=== PATIENT | female | born 1965 | race Caucasian/White ===

== ENCOUNTER 2017-03-07 22:25 | Emergency (ER) | payer OTHER ==
[2017-03-07 22:25] VITALS: BP 157/110
[2017-03-07] MEDS ORDERED: NITROGLYCERIN SUBLINGUAL 0.4 MG BOTTLE OF 25. SL PRN (22:45)
[2017-03-07] MEDS ORDERED: ASPIRIN 81 MG TAB.CHEW PO ONE (22:45)
[2017-03-07] MEDS ORDERED: KETOROLAC 30 MG/ML VIAL. ONE (23:08)
[2017-03-07] MEDS ORDERED: KETOROLAC 30 MG/ML VIAL. IV ONE (23:15)
[2017-03-07] MEDS ORDERED: KETOROLAC 60 MG/2 ML VIAL. IM ONE ×2 (23:27→23:45)
--- NOTE | 2017-03-07 23:48 | PHYS DOC ---
General Chief Complaint: CHEST PAIN Stated Complaint: CHEST PAIN Time Seen by MD: 22:37 Source: patient Exam Limitations: no limitations Problems: History of Present Illness Initial Comments Patient is a 51-year-old female who comes emergency Department complaining of chest pain. Patient is accompanied by her spouse, she states that she has not exercised for a very long time and having cabin fever with the very cold outside temperatures earlier today decided to walk on the treadmill. She states that she walked on the treadmill for at least 30 minutes and did work up a sweat but did not feel any chest pain or difficulty breathing throughout the workout. She was symptoms free throughout the afternoon and early evening, about an hour ago when she laid down on her back to go to bed she experienced sudden onset moderate to severe sharp localized left-sided chest/rib pain. The pain was worse with deep breaths, certain positions of her torso, and primarily relieved with upright posture. She denies any dyspnea, nausea, diaphoresis, arm or neck symptoms. She is very anxious that it could be her heart as her mother of a heart attack in her eighth decade of life. The patient had a stress test and echocardiogram, "full heart workup" 14 month ago which she states was completely negative. She denies history of hypertension , diabetes, hyperlipidemia, and has never been a smoker. Timing/Duration: 1-3 hours Severity: severe Modifying Factors: worse with movement, improves with rest Associated Symptoms: chest pain Allergies: Coded Allergies: No Known Drug Allergies (Unverified , 03/07/17) Past Medical History Medical History: no pertinent history Surgical History: noncontributory Social History Smoker: non-smoker Alcohol: occasionally Drugs: none Review of Systems Constitutional: denies chills, denies diaphoresis, denies fever, denies malaise Respiratory: denies cough, denies orthopnea, denies shortness of breath, denies wheezing Cardiovascular: chest pain, denies edema, denies palpitations, denies syncope Gastrointestinal: denies abdominal pain, denies diarrhea, denies nausea, denies vomiting Musculoskeletal: see HPI, denies back pain, denies joint swelling, denies neck pain Psychiatric/Neurological: denies headache, denies numbness, denies paresthesia Physical Exam General Appearance: WD/WN, mild distress (anxious) Ear, Nose, Throat: hearing grossly normal, normal ENT inspection Neck: non-tender, full range of motion, supple Respiratory: normal breath sounds, no respiratory distress, other (chest pain is reproducible with palpation of the costal cartilage at the anterolateral chest reproducing chief complaint) Cardiovascular: normal peripheral pulses, regular rate, rhythm Gastrointestinal: non tender, soft Back: no CVA tenderness, no vertebral tenderness Extremities: non-tender, normal inspection, no pedal edema Neurologic/Psychiatric: angle dozer operator II-XII nml as tested, no motor/sensory deficits, alert, oriented x 3 Skin: normal color, warm/dry Orders, Labs, Meds EKG: Normal sinus rhythm 93 bpm, no ST segment elevation interpreted by me. The patient's physical exam revealed exquisitely tender costal cartilage at the anterolateral chest reproducing the chest pain complaints identically that the patient came for evaluation. I advised the patient that this discomfort is musculoskeletal and if that is what brought her to the emergency department she should be reassured. I also advised her that to fully rule out an acute cardiac process she would need to be admitted to the hospital for serial blood tests and evaluation tomorrow. Although I feel strongly that her chief complaint is musculoskeletal in origin I did offer the patient inpatient observation admission. After an extended discussion the patient requests discharge home as she has looked up costochondritis on her Smart phone and states that it absolutely describes her current symptoms. I did discuss the fact with her that she could have undiagnosed cardiac process not related to rubén's chief complaint that although it didn't bring her to the emergency department rubén may need to be evaluated further as an outpatient. Multiple times I did offer full lab and inpatient evaluation however the patient is satisfied and reassured and requests discharge home. Departure Time of Disposition: 23:46 Disposition: 01 HOME, SELF-CARE Diagnosis: costochondritis Condition: GOOD Patient Instructions: Costochondritis, [id number] Additional Instructions: Please review the patient education materials given by ED staff. As discussed, your symptoms appear to be musculoskeletal in origin. Despite this, overnight admission to follow blood tests has been offered and declined at this time. You may return at any time for further evaluation and treatment. [id number] ibuprofen as well as Tylenol as needed for discomfort. Ice to affected area for the first 48 hours, 20 minutes at a time 4-6 times daily. After 48 hours may ion exchange operator to heating pad 15-20 minutes 4-6 times daily followed by gentle stretching. Follow-up with your doctor in 5-7 days for recheck, outpatient stress testing may be indicated. Return to ED with new or changing symptoms. MICHEAL RIVERA DO Mar 07, 2017 23:48
--- NOTE | 2017-03-07 23:49 | EKG ---
[address] [address] Test Date: 2017-03-07 Test Time: 22:33:42 Pat Name: AALIYAH KC Department: Room: Gender: F [employer] Programmer: TONO : 1965 Requested By: MICHEAL RIVERA Order Number: [id number] Reading MD: Hugo Workman MD Measurements Intervals [place] Rate: 93 P: 6 OR: 166 QRS: -10 QRSD: 86 T: 65 QT: 348 QTc: 435 Interpretive Statements SINUS RHYTHM Electronically Signed On 03-10-2017 12:47:12 [employer] by Hugo Workman MD
--- NOTE | 2017-03-08 08:02 | RAD ---
Portable chest, 03/07/2017: History: Chest pain The heart size and pulmonary vascularity are normal. No pulmonary infiltrate is seen. There is no evidence of pleural fluid. IMPRESSION: No acute cardiopulmonary abnormality is detected.
== END 2017-03-07 23:55 | disposition home or self-care (01) ==
LOC: ER 22:25
DX: M94.0 Chondrocostal junction syndrome [Tietze] (principal)
CPT/HCPCS: 71045; 93005; 96372; 99285; J1885

== ENCOUNTER → 2020-01-24 | Outpatient (CLI) | payer OTHER ==
--- NOTE | 2020-02-04 13:31 | RAD ---
DATE: 01/24/2020 3:07 PM EXAM: MAMMO FANNY SCREENING BILATERAL HISTORY: Screening COMPARISON: 05/18/2017 Bilateral CC and MLO views of the breasts were performed. Bilateral breast tomosynthesis was performed in CC and MLO projections. This study was interpreted with the benefit of Computerized Aided Detection (CAD). FINDINGS: Breast Density: HETERO The breast parenchyma Is heterogeneously dense, which could reduce sensitivity of mammography. Breast parenchyma level C No suspicious masses, microcalcifications or architectural distortion is present to suggest malignancy in either breast. The visualized axillae are unremarkable. IMPRESSION: No mammographic evidence of malignancy. BI-RADS CATEGORY: 1 NEGATIVE RECOMMENDED FOLLOW-UP: 12M 12 MONTH FOLLOW-UP Annual screening mammography is recommended, unless clinically indicated sooner based on symptoms or change in physical exam. PQRS compliance statement: Patient information was entered into a reminder system with a target due date for the next mammogram. Mammography is a sensitive method for finding small breast cancers, but it does not detect them all and is not a substitute for careful clinical examination. A negative mammogram does not negate a clinically suspicious finding and should not result in delay in biopsying a clinically suspicious abnormality. "Our facility is accredited by the [employer] Mammography Program."
== END ==
LOC: MAMMO 14:53
PROVIDERS: ATTEND Specialist
DX: Z12.31 Encounter for screening mammogram for malignant neoplasm of breast (principal); N64.89 Other specified disorders of breast
CPT/HCPCS: 77063; 77067